=== PATIENT | female | born 1990 | race Caucasian/White ===

== ENCOUNTER 2016-09-15 02:46 | Emergency (ER) | payer OTHER ==
[~2016-09-15] VITALS: Ht 157.5 cm; Wt 59.0 kg
[2016-09-15 03:00] VITALS: BP 128/72
== END 2016-09-15 03:50 | disposition home or self-care (01) ==
LOC: ER 02:48
DX: S61.210A Laceration without foreign body of right index finger without damage to nail, initial encounter (principal); W25.XXXA Contact with sharp glass, initial encounter; Y93.89 Activity, other specified; Y92.89 Other specified places as the place of occurrence of the external cause; Y99.0 Civilian activity done for income or pay

== ENCOUNTER 2019-07-26 12:33 | Emergency (ER) | payer BC, OTHER ==
[~2019-07-26] VITALS: Ht 157.5 cm; Wt 63.5 kg
[2019-07-26 12:41] VITALS: BP 142/79
== END 2019-07-26 13:34 | disposition home or self-care (01) ==
LOC: ER 12:33
DX: S52.501A Unspecified fracture of the lower end of right radius, initial encounter for closed fracture (principal); W00.0XXA Fall on same level due to ice and snow, initial encounter; Y93.23 Activity, snow (alpine) (downhill) skiing, snowboarding, sledding, tobogganing and snow tubing; Y92.89 Other specified places as the place of occurrence of the external cause; Y99.8 Other external cause status
CPT/HCPCS: 29125; 73110

== ENCOUNTER 2019-12-29 08:03 | Emergency (ER) | payer BC ==
[~2019-12-29] VITALS: Ht 154.9 cm; Wt 61.2 kg
[2019-12-29 12:01] VITALS: BP 120/75
== END 2019-12-29 14:20 | disposition home or self-care (01) ==
LOC: EEVIPCON 08:03 → ER 08:03
DX: U07.1 COVID-19 (principal)
CPT/HCPCS: 87070; 87804; 87880; 99283; C9803; U0003